=== PATIENT | male | born 1965 | race Caucasian/White ===

== ENCOUNTER 2018-01-23 06:22 | Emergency (ER) | payer OTHER ==
[2018-01-23] MEDS ORDERED: NS(*) 0.9% 1000 ML BAG 1,000 ML IV ONE ×3 (06:36→08:10)
[2018-01-23] MEDS ORDERED: ONDANSETRON 4 MG/2 ML VIAL IVP ONE (06:40)
[2018-01-23 07:11] LABS: PLATELET COUNT, AUTOMATED 177 K/uL (150-450)
[2018-01-23] MEDS ORDERED: metroNIDAZOLE* 500MG/100ML BAG 100 ML IVPB ONE (07:30)
[2018-01-23 07:35] VITALS: BP 115/98
--- NOTE | 2018-01-23 07:41 | ER Report ---
History and Physical Time Seen By MD: 06:15 Hx. of Stated Complaint: PT REPORTS DIARRHEA FOR 9 DAYS. HAD NAUSEA, VOMITING AND ABDOMINAL PAIN WELL. 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 has been having progressively worsening diarrhea and vomiting patient says that he had a meal at a [place] restaurant subsequently sent [place] getting some abdominal cramping he's been having progressive and profuse diarrhea describing it as "baby diarrhea" patient has some mild associated abdominal cramping is been trying to drive and unable to avoid having to make multiple frequent stops also describing by mouth intolerance a unable to eat or drink anything without vomiting a backup is been primarily drinking Mountain Dew for caffeine to stay awake and while he is driving or 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 Cardiovascular: No chest pain, no palpitations. Gastrointestinal: Vomiting profuse diarrhea associated abdominal cramping Musculoskeletal: No back pain. Remainder of the 14 system rev: Yes Allergies: Coded Allergies: No Known Drug Allergies (Unverified , 01/23/18) Home Meds No Active Prescriptions or Reported Meds Reviewed Nurses Notes: Yes Old Medical Records Reviewed: Yes Hx Substance Use Disorder: No Hx Alcohol Use: No Constitutional Vital Sign - Last 24 Hours 01/23/18 01/23/18 01/23/18 01/23/18 06:39 06:52 07:00 07:22 Pulse 100 98 B/P (MAP) 136/93 (107) 132/79 (96) Pulse Ox 92 91 01/23/18 01/23/18 01/23/18 07:33 07:33 07:35 Pulse 99 98 103 B/P (MAP) 132/83 (99) 126/92 (103) 115/98 (104) Pulse Ox 95 92 O2 Delivery Room Air Room Air Intake and Output 01/23/18 01/23/18 01/24/18 15:00 23:00 07:00 Intake Total 1000 ml Balance 1000 ml Physical Exam General Appearance: The patient is alert, has no immediate need for airway protection and no current signs of toxicity. [ ] Eyes: Pupils equal and round no injection. Respiratory: Chest is non tender, lungs are clear to auscultation. Cardiac: regular rate and rhythm [ ] Gastrointestinal: Abdomen is soft and non tender, no masses, bowel sounds normal. Musculoskeletal: Neck: Neck is supple and non tender. Extremities have full range of motion and are non tender. Skin: No rashes or lesions. [ ] DIFFERENTIAL DIAGNOSIS: After history and physical exam differential diagnosis was considered for enteritis gastroenteritis C. difficile Salmonella Medical Decision Making Data Points Result Diagram: 01/23/18 0647 01/23/18 0647 Laboratory Hematology Test 01/23/18 06:32 01/23/18 06:47 Stool Occult Blood (IFOB) Negative (NEGATIVE) Stool Leukocytes, Qualitative Positive Clostridium Difficile Toxin A & B Positive Clostridium difficile Antigen Positive Red Blood Count 5.60 M/uL (4.00-5.60) Mean Corpuscular Volume 90.2 fL (80.0-96.0) Mean Corpuscular Hemoglobin 31.1 pg (26.0-33.0) Mean Corpuscular Hemoglobin Concent 34.5 g/dL (32.0-36.0) Red Cell Distribution Width 13.7 % (11.5-14.5) Mean Platelet Volume 10.7 fL (7.2-11.1) Neutrophils (%) (Auto) 81.4 % (39.4-72.5) Lymphocytes (%) (Auto) 9.0 % (17.6-49.6) Monocytes (%) (Auto) 8.7 % (4.1-12.4) Eosinophils (%) (Auto) 0.1 % (0.4-6.7) Basophils (%) (Auto) 0.8 % (0.3-1.4) Nucleated RBC Relative Count (auto) 0.1 /100WBC Neutrophils # (Auto) 16.1 K/uL (2.0-7.4) Lymphocytes # (Auto) 1.8 K/uL (1.3-3.6) Monocytes # (Auto) 1.7 K/uL (0.3-1.0) Eosinophils # (Auto) 0.0 K/uL (0.0-0.5) Basophils # (Auto) 0.2 K/uL (0.0-0.1) Nucleated RBC Absolute Count (auto) 0.02 K/uL Sodium Level 135 mmol/L (137-145) Potassium Level 3.5 mmol/L (3.5-5.0) Chloride Level 98 mmol/L (98-107) Carbon Dioxide Level 25 mmol/L (22-30) Blood Urea Nitrogen 10 mg/dl (9-21) Creatinine 1.30 mg/dl (0.66-1.25) Glomerular Filtration Rate Calc 58.4 Random Glucose 119 mg/dl (75-110) Calcium Level 9.0 mg/dl (8.4-10.2) Total Bilirubin 1.0 mg/dl (0.2-1.3) Aspartate Amino Transf (AST/SGOT) 24 U/L (0-35) Alanine Aminotransferase (ALT/SGPT) 33 U/L (0-56) Alkaline Phosphatase 63 U/L (0-126) Total Protein 6.6 gm/dl (6.3-8.2) Albumin 3.6 g/dl (3.5-5.0) Chemistry Test 01/23/18 06:32 01/23/18 06:47 Stool Occult Blood (IFOB) Negative (NEGATIVE) Stool Leukocytes, Qualitative Positive Clostridium Difficile Toxin A & B Positive Clostridium difficile Antigen Positive White Blood Count 19.8 k/uL (4.5-11.0) Red Blood Count 5.60 M/uL (4.00-5.60) Hemoglobin 17.4 g/dL (14.0-18.0) Hematocrit 50.6 % (42.0-52.0) Mean Corpuscular Volume 90.2 fL (80.0-96.0) Mean Corpuscular Hemoglobin 31.1 pg (26.0-33.0) Mean Corpuscular Hemoglobin Concent 34.5 g/dL (32.0-36.0) Red Cell Distribution Width 13.7 % (11.5-14.5) Platelet Count 177 K/uL (150-450) Mean Platelet Volume 10.7 fL (7.2-11.1) Neutrophils (%) (Auto) 81.4 % (39.4-72.5) Lymphocytes (%) (Auto) 9.0 % (17.6-49.6) Monocytes (%) (Auto) 8.7 % (4.1-12.4) Eosinophils (%) (Auto) 0.1 % (0.4-6.7) Basophils (%) (Auto) 0.8 % (0.3-1.4) Nucleated RBC Relative Count (auto) 0.1 /100WBC Neutrophils # (Auto) 16.1 K/uL (2.0-7.4) Lymphocytes # (Auto) 1.8 K/uL (1.3-3.6) Monocytes # (Auto) 1.7 K/uL (0.3-1.0) Eosinophils # (Auto) 0.0 K/uL (0.0-0.5) Basophils # (Auto) 0.2 K/uL (0.0-0.1) Nucleated RBC Absolute Count (auto) 0.02 K/uL Glomerular Filtration Rate Calc 58.4 Calcium Level 9.0 mg/dl (8.4-10.2) Total Bilirubin 1.0 mg/dl (0.2-1.3) Aspartate Amino Transf (AST/SGOT) 24 U/L (0-35) Alanine Aminotransferase (ALT/SGPT) 33 U/L (0-56) Alkaline Phosphatase 63 U/L (0-126) Total Protein 6.6 gm/dl (6.3-8.2) Albumin 3.6 g/dl (3.5-5.0) Microbiology Microbiology Date/Time Source Procedure Growth Status 01/23/18 06:32 Stool Gram Stain - Final Resulted 01/23/18 06:32 Stool Stool Culture Pending Resulted ED Course/Re-evaluation ED Course ED clinical course medical decision making 52-year-old male comes in with 90s a progressive worsening diarrhea C. difficile is positive started him on IV Flagyl 3 L of fluid resuscitation orthostatics were negative patient feels significant better an elevated white count of 19 with a left shift and a bandemia started on by mouth Flagyl antibiotic some primary care follow-up diagnosis C. difficile infection Decision to Disposition Date: Jan 23, 2018 Decision to Disposition Time: 08:03 Depart Departure Latest Vital Signs Vital Signs Date Time Temp Pulse Resp B/P (MAP) Pulse Ox O2 Delivery O2 Flow Rate FiO2 01/23/18 07:35 103 115/98 (104) 01/23/18 07:33 92 Room Air Impression: Primary Impression: Clostridium difficile diarrhea Condition: Improved Disposition: HOME OR SELF-CARE Referrals: DENZEL ARIZA MD 2 Days New Scripts Metronidazole (FLAGYL) 500 Mg Tablet 500 MG PO BID for 7 Days, #14 TAB Prov: YAYA ROSE MD 01/23/18 Patient Instructions: Clostridium Difficile Infection (DC) YAYA ROSE MD Jan 23, 2018 07:41
[2018-01-23] MEDS ORDERED: METR-1 PO (08:46)
== END 2018-01-23 09:03 ==
LOC: ER 06:26
DX: A04.72 Enterocolitis due to Clostridium difficile, not specified as recurrent (principal)
CPT/HCPCS: 82274; 83630; 85025; 87045; 87177; 87205; 87324; 87449; 96361; 96365; 96375; 99284; J2405; J3490; J7030; 82040; 82247; 82310; 82374; 82435; 82565; 82947; 84075; 84132; 84155; 84295; 84450; 84460; 84520